=== PATIENT | male | born 1985 | race Caucasian/White ===

== ENCOUNTER 2016-11-11 16:40 | Emergency (ER) | payer SELFPAY ==
--- NOTE | 2016-11-11 16:59 | ED.PDOC ---
History of Present Illness - General Chief Complaint: Respiratory Problem Stated Complaint: COUGH AND CONGESTION X 1 WEEK Time Seen by Provider: 11/11/16 16:45 Source: patient Exam Limitations: no limitations - History of Present Illness Initial Comments: Patient presents with 8 days of increasing head congestion and cough. He says when he bends over the pressure in his head makes if feel like it is going to explode. He has had clear nasal exudate. + ST. Thinks he had a fever yesterday. Today he coughed up xiang sputum which he interpreted as blood. He has had a problem with sinusitis in the past. He says he feels short of breath and some pressure on his chest but only when he coughs. No sick contacts. No other complaints. Timing/Duration: other - 8 days Severity: moderate Improving Factors: nothing Worsening Factors: nothing Associated Symptoms: fever/chills, shortness of breath Allergies/Adverse Reactions: Allergies NO KNOWN ALLERGY Allergy (Verified 11/11/16 17:12) Home Medications: Ambulatory Orders Amoxicillin & Pot Clavulanate [Augmentin] 875 mg PO BID #20 tab 11/11/16 Review of Systems - Review of Systems Constitutional: States: see HPI EENTM: States: see HPI Respiratory: States: see HPI Cardiology: States: no symptoms reported Gastrointestinal/Abdominal: States: no symptoms reported Genitourinary: States: no symptoms reported Musculoskeletal: States: no symptoms reported Skin: States: no symptoms reported Neurological: States: no symptoms reported Endocrine: States: no symptoms reported Hematologic/Lymphatic: States: no symptoms reported Past Medical History (General) - Patient Medical History Hx Seizures: No Hx Stroke: No Hx Dementia: No Hx Asthma: No Hx of COPD: No Hx Cardiac Disorders: No Hx Congestive Heart Failure: No Hx Pacemaker: No Hx Hypertension: No Hx Thyroid Disease: No Hx Diabetes: No Hx Gastroesophageal Reflux: No Hx Renal Disease: No Hx Cancer: No Hx of HIV: No Hx Hepatitis C: No Hx MRSA: No Surgical History: no surgical history - Vaccination History Hx Tetanus, Diphtheria Vaccination: No Hx Influenza Vaccination: No Hx Pneumococcal Vaccination: No Immunizations Up to Date: No - Social History Hx Tobacco Use: Yes Hx Chewing Tobacco Use: No Hx Alcohol Use: Yes Hx Substance Use: No Hx Substance Use Treatment: Yes Hx Depression: No Feels Threatened In Home Enviroment: No Feels Threatened In a Relationship: No Hx Physical Abuse: No Hx Emotional Abuse: No Hx Suspected Abuse: No Family Medical History - Family History Father Family History: Unknown Living Status: Unknown Hx Family Asthma: No Physical Exam - Physical Exam General Appearance: Alert Eye Exam: bilateral normal Ears, Nose, Throat: normal ENT inspection Neck: full range of motion, supple, lymphadenopathy (R) - right anterior cervical LAD, mobile, rubbery, tender, less than 1 cm Respiratory: lungs clear Cardiovascular/Chest: normal peripheral pulses, regular rate, rhythm Gastrointestinal/Abdominal: normal bowel sounds, non tender, soft Progress - Progress Progress: 11/11/16 17:49 Two view of chest was negative. Departure - Departure Clinical Impression: Acute sinusitis, Acute bronchitis Disposition: Discharge to Home or Self Care Condition: Good Departure Forms: ED Discharge - Pt. Copy, Patient Portal Self Enrollment Diet: resume usual diet Activity: increase activity as tolerated Prescriptions: Amoxicillin & Pot Clavulanate [Augmentin] 875 mg PO BID #20 tab Home Medications: Ambulatory Orders Amoxicillin & Pot Clavulanate [Augmentin] 875 mg PO BID #20 tab 11/11/16
[2016-11-11 17:13] VITALS: BP 143/80; TEMP 100
--- NOTE | 2016-11-11 17:14 | RAD ---
EXAM: Chest,2 Views CLINICAL INDICATION: 31-year-old male with hemoptysis, dyspnea and upper respiratory infection. TECHNIQUE: Two-view, PA and lateral projections of the chest were obtained. COMPARISON: None. FINDINGS: Unremarkable cardiac and mediastinal silhouette. Heart size is normal. Lungs are clear without focal opacity, pneumothorax or pleural effusions. The visualized bones are within normal limits. IMPRESSION: No acute cardiopulmonary abnormalities. Electronically signed by: Patricia Patel MD 11/11/2016 5:13 PM CDT Workstation: [id number]
[2016-11-11 18:21] VITALS: O2SAT 98
== END 2016-11-11 18:20 | disposition home or self-care (01) ==
LOC: ER 16:40
DX: J20.9 Acute bronchitis, unspecified (principal); J01.90 Acute sinusitis, unspecified

== ENCOUNTER 2017-08-18 21:36 | Emergency (ER) | payer SELFPAY ==
[2017-08-18 21:48] VITALS: TEMP 97.7; O2SAT 100
[2017-08-18] MEDS ORDERED: TAMSULOSIN 0.4 MG CAP PO ONE (21:56)
[2017-08-18] MEDS ORDERED: HYDROmorphone HCL INJ 2 MG/ML VIAL IV ONE (21:56)
[2017-08-18] MEDS ORDERED: PROMETHAZINE HCL INJ 25 MG in SODIUM CHLORIDE 0.9% 50ML 50 ML IVPB ONE (21:56)
[2017-08-18] MEDS ORDERED: KETOROLAC TROMETHAMINE INJ 30 MG/ML VIAL IV ONE (21:56)
[2017-08-18] MEDS ORDERED: SODIUM CHLORIDE 0.9% 1000ML 1,000 ML IVS ONE (21:57)
[2017-08-18] MEDS ORDERED: SODIUM CHLORIDE 0.9% 50ML 50 ML ONE (21:58)
[2017-08-18] MEDS ORDERED: PROMETHAZINE HCL INJ 25 MG/ML VIAL ONE (21:58)
--- NOTE | 2017-08-18 22:29 | RAD ---
Examination: XR ABDOMEN 1 VIEW (KUB) dated 08/18/2017 9:56 PM CDT History: suspected rigth kidney stone Comparison: 11/23/2015 Technique: Frontal view of the abdomen and pelvis FINDINGS: No findings to suggest obstruction. Small 2 mm calcification in the region of the left renal upper pole. No suspicious right-sided calcifications. No acute osseous abnormality. IMPRESSION: Punctate calcification projecting over the region of the left kidney suspicious for renal stone. No suspicious right-sided calcifications. Electronically signed by: Washington Joy MD 08/18/2017 10:27 PM CDT
[2017-08-18] MEDS ORDERED: HYDROcodone 10MG/APAP 325MG 1 EA TAB PO ONE (22:51)
--- NOTE | 2017-08-18 22:54 | ED.PDOC ---
History of Present Illness - General Chief Complaint: Problem Stated Complaint: right abdomen pain, groin pain, possible stone Time Seen by Provider: 08/18/17 21:56 Source: patient Exam Limitations: no limitations - History of Present Illness Initial Comments: the patient is a 31-year-old male presenting to the emergency room secondary to right flank and abdominal pain starting about 12 hours ago. The patient has a history of passing multiple small kidney stones. He has never had to have lithotripsy. He is passing a little bit of blood in his urine and having some urinary frequency and dysuria. No fevers. He has been nauseated and throwing up a couple of times. No syncope or near syncope. Pain is on the right side. Severity: severe Improving Factors: nothing Worsening Factors: nothing Associated Symptoms: malaise, nausea/vomiting Allergies/Adverse Reactions: Allergies NO KNOWN ALLERGY Allergy (Verified 08/18/17 21:48) Home Medications: Ambulatory Orders Promethazine HCl 25 mg PO Q6H PRN #10 tab 08/18/17 Tamsulosin HCl [Flomax] 0.4 mg PO DAILY #10 cap 08/18/17 Tramadol HCl [Conzip] 100 mg PO Q6HR PRN #30 cap 08/18/17 Review of Systems - Review of Systems Constitutional: States: no symptoms reported EENTM: States: no symptoms reported Respiratory: States: no symptoms reported Cardiology: States: no symptoms reported Gastrointestinal/Abdominal: States: no symptoms reported Genitourinary: States: see HPI Musculoskeletal: States: back pain Skin: States: no symptoms reported Neurological: States: no symptoms reported Endocrine: States: no symptoms reported All other Systems: No Change from Baseline Past Medical History (General) - Patient Medical History Hx Seizures: No Hx Stroke: No Hx Dementia: No Hx Asthma: No Hx of COPD: No Hx Cardiac Disorders: No Hx Congestive Heart Failure: No Hx Pacemaker: No Hx Hypertension: No Hx Thyroid Disease: No Hx Diabetes: No Hx Gastroesophageal Reflux: No Hx Renal Disease: No Hx Cancer: No Hx of HIV: No Hx Hepatitis C: No Hx MRSA: No Surgical History: other - Vaccination History Hx Tetanus, Diphtheria Vaccination: Yes Hx Influenza Vaccination: No Hx Pneumococcal Vaccination: No - Social History Hx Tobacco Use: Yes Hx Chewing Tobacco Use: No Hx Alcohol Use: Yes - social Hx Substance Use: No Hx Substance Use Treatment: Yes Hx Depression: No Hx Physical Abuse: No Hx Emotional Abuse: No Hx Suspected Abuse: No Family Medical History - Family History Father Family History: Unknown Living Status: Unknown Hx Family Asthma: No Physical Exam - Physical Exam General Appearance: Alert, Obvious distress Eye Exam: bilateral normal Ears, Nose, Throat: hearing grossly normal, normal ENT inspection Neck: full range of motion, supple Respiratory: lungs clear, normal breath sounds, no respiratory distress, no accessory muscle use Cardiovascular/Chest: normal peripheral pulses, regular rate, rhythm, no edema Peripheral Pulses: radial,right: 2+, radial,left: 2+, dorsalis pedis,right: 2+, dorsalis pedis,left: 2+ Gastrointestinal/Abdominal: non tender, soft Rectal Exam: deferred Back Exam: CVA tenderness (R) Extremity: non-tender, normal inspection, no pedal edema, normal capillary refill Neurologic: occup therapist II-XII nml as tested, alert, normal mood/affect, oriented x 3 Skin Exam: normal color Comments: Vital Signs - 24 hr 08/18/17 21:40 Temperature 97.7 F Pulse Rate [ 93 H monitor] Respiratory 20 Rate Blood Pressure 161/83 [Right Arm] O2 Sat by Pulse 100 Oximetry Progress - Progress Progress: 08/18/17 22:54 the patient's a 31-year-old male presenting to the emergency room secondary to right-sided ureterolithiasis. The patient has received a liter of IV fluids, a dose of Toradol, pain medications and a dose of Flomax here tonight. Urine does not indicate any infection and renal function appears good based on blood work. He needs to increase his fluid intake. He will be written for nausea medications as needed as well as tramadol for pain control and Flomax to help with relaxation of the ureter. If pain persists more than another 3 days and he does need to be reevaluated by his primary care doctor. ER warnings were given. CT scan not done at this time due to multiple previous. - Results/Orders Results/Orders: Laboratory Tests 08/18/17 08/18/17 08/18/17 21:50 21:50 21:50 WBC 8.8 RBC 4.94 Hgb 14.2 Hct 41.5 L MCV 84.1 MCH 28.7 MCHC 34.1 RDW 14.7 H Plt Count 301 MPV 8.9 Absolute Neuts (auto) 5.10 Absolute Lymphs (auto) 2.80 Absolute Monos (auto) 0.70 Absolute Eos (auto) 0.20 Absolute Basos (auto) 0.00 Neutrophils % 57.3 Lymphocytes % 31.7 Monocytes % 8.1 Eosinophils % 2.7 Basophils % 0.2 Sodium 140 Potassium 3.7 Chloride 103 Carbon Dioxide 29 Anion Gap 11.7 L BUN 14 Creatinine 0.93 BUN/Creatinine Ratio 15.1 Random Glucose 86 Serum Osmolality 279.2 Calcium 9.5 Total Bilirubin 0.4 AST 26 ALT 24 Alkaline Phosphatase 58 Serum Total Protein 7.6 Albumin 4.3 Globulin 3.3 Albumin/Globulin Ratio 1.3 Urine Color Heidi Urine Appearance Cloudy Urine pH 6.5 Ur Specific [place] 1.025 Urine Protein 30 Urine Glucose (UA) Negative Urine Ketones Negative Urine Blood Large H Urine Nitrite Negative Urine Bilirubin Negative Urine Urobilinogen 0.2 Ur Leukocyte Esterase Negative Urine RBC Tntc H Urine WBC 1-3 Ur Epithelial Cells 0 Urine Bacteria Rare KUB shows no evidence of any kidney stone along the line of the right ureter. Departure - Departure Clinical Impression: Ureterolithiasis Disposition: Discharge to Home or Self Care Condition: Fair Departure Forms: ED Discharge - Pt. Copy, Patient Portal Self Enrollment Instructions: DI for Kidney Stones Diet: regular diet Activity: increase activity as tolerated Prescriptions: Tramadol HCl [Conzip] 100 mg PO Q6HR PRN #30 cap PRN Reason: Moderate To Severe Pain Promethazine HCl 25 mg PO Q6H PRN #10 tab PRN Reason: Vomiting Tamsulosin HCl [Flomax] 0.4 mg PO DAILY #10 cap Home Medications: Ambulatory Orders Promethazine HCl 25 mg PO Q6H PRN #10 tab 08/18/17 Tamsulosin HCl [Flomax] 0.4 mg PO DAILY #10 cap 08/18/17 Tramadol HCl [Conzip] 100 mg PO Q6HR PRN #30 cap 08/18/17 Additional Instructions: the patient's a 31-year-old male presenting to the emergency room secondary to right-sided ureterolithiasis. The patient has received a liter of IV fluids, a dose of Toradol, pain medications and a dose of Flomax here tonight. Urine does not indicate any infection and renal function appears good based on blood work. He needs to increase his fluid intake. He will be written for nausea medications as needed as well as tramadol for pain control and Flomax to help with relaxation of the ureter. If pain persists more than another 3 days and he does need to be reevaluated by his primary care doctor. ER warnings were given. CT scan not done at this time due to multiple previous.
[2017-08-18 23:05] VITALS: BP 134/81
== END 2017-08-18 23:05 | disposition home or self-care (01) ==
LOC: ER 21:36
DX: N20.1 Calculus of ureter (principal); Z87.442 Personal history of urinary calculi; Z87.891 Personal history of nicotine dependence
CPT/HCPCS: 36415; 74018; 80053; 81001; 85025; A4216; J1170; J1885; J2550; J7030